=== PATIENT | female | born 1970 | race Caucasian/White ===

== ENCOUNTER → 2016-09-26 | Outpatient (CLI) | payer BC ==
--- NOTE | 2016-09-26 17:00 | EKG ---
[address] [address] Measurements Intervals [place] Rate: 70 P: 67 UT: 158 QRS: 78 QRSD: 96 T: 62 QT: 378 QTc: 399 Interpretive Statements SINUS RHYTHM No previous ECG available for comparison Electronically Signed On 09-28-16 08:07:39 MDT by Elliott Ramon MD [email or web address]
[2016-09-26 17:29] LABS: HEMATOCRIT 38.3 % (37.0-47.0); HEMOGLOBIN 12.5 g/dL (12.0-16.0); MEAN CORPUSCULAR HEMOGLOBIN 27.9 PG (27-31); MEAN CORPUSCULAR HGB CONC 32.6 g/dL (33-37); MEAN CORPUSCULAR VOLUME 85.5 FL (81-99); MEAN PLATELET VOLUME 11.9 FL (7.4-12.2); RED BLOOD COUNT 4.48 10^6/uL (4.20-5.40)
[2016-09-26 17:45] LABS: BLOOD UREA NITROGEN 21 mg/dL (7-22); BUN/CREATININE RATIO 26.25 (6-20); CALCIUM 9.5 mg/dL (8.7-10.7); EST GLOMERULAR FILTRATION > 60 (>60 ml/min/1.73m(2)); SERUM ALBUMIN 4.2 g/dL (3.5-4.8)
--- NOTE | 2016-09-26 18:20 | DI ---
PA /LATERAL CHEST X-RAY, 09/26/2016 4:42 PM : Clinical History: Chest pain with breathing (pleuritic). Previous Exam: None at this facility. There is no acute soft tissue or bony abnormality. Heart size is normal. Lungs are clear. Mediastinal structures are normal. There are no pulmonary nodules. Reading: Normal chest x-ray.
== END ==
LOC: MOB LAB 16:43
PROVIDERS: ATTEND Student in an Organized Health Care Education/Training Program
DX: R07.1 Chest pain on breathing (principal)
CPT/HCPCS: 36415; 71020; 80053; 84443; 84484; 85027; 85379; 93005; 93010